=== PATIENT | male | born 1950 | race Two or more races ===

== ENCOUNTER 2020-01-26 12:40 | Outpatient (CLI) | payer MEDICARE ==
[~2020-01-26 12:40] MED LIST: AMLODIPINE BESYL5 MG ORAL; ASPIRIN EC81 MG ORAL; ATORVASTATIN CA40 MG ORAL; CARVEDILOL25 MG ORAL; FAMOTIDINE20 MG ORAL; FISH OIL 1,0001 EAC1 ORAL; VITAMIN D2000 UNI3 PO
== END 2020-01-26 14:44 | disposition home or self-care (01) ==
LOC: PAN 12:40
DX: R10.9 Unspecified abdominal pain (principal)
CPT/HCPCS: 99212